=== PATIENT | female | born 1990 | race Caucasian/White ===

== ENCOUNTER 2024-12-15 00:28 | Inpatient (IN) | payer OTHER ==
[2024-12-15] MEDS: Lactated Ringers 1,000 ML IV SCH (10:30)
[2024-12-15] MEDS ORDERED: Morphine PF 10 MG/10 ML SDV ONE (11:12)
[2024-12-15] MEDS ORDERED: Bupivacaine 0.75%/D5W 2 ML Amp ONE (11:12)
[2024-12-15] MEDS ORDERED: Oxytocin/Normal Saline 30 UNIT/500 ML BAG ONE ×2 (11:13→11:16)
[2024-12-15] MEDS ORDERED: Ketorolac 30 MG/ML SDV ONE (11:13)
[2024-12-15] MEDS ORDERED: Carboprost Tromethamine 250 MCG/1 mL Vial IM PRN (11:24)
[2024-12-15] MEDS ORDERED: Oxytocin 10 Units/1 ML SDV IM PRN (11:24)
[2024-12-15] MEDS ORDERED: Lactated Ringers 1,000 ML IV SCH ×2 (11:30→13:30)
[2024-12-15] MEDS ORDERED: Oxytocin/Lactated Ringers 30 UNIT/500 ML BAG IV SCH (11:30)
[2024-12-15 11:42] LABS: BASOPHILS PERCENT AUTO 0.2 % (0.0-1.0); EOSINOPHILS PERCENT AUTO 0.3 % (1.0-3.0); LYMPHOCYTES PERCENT AUTO 25.0 % (20.5-50.1); MONOCYTES PERCENT AUTO 7.1 % (2-8); NEUTROPHILS PERCENT AUTO 67.4 % (42.2-75.2); PLATELET COUNT,PLT 246 10^3/uL (150-450); RED BLOOD CELL COUNT 4.17 10^6/uL (4.2-5.4); WHITE BLOOD CELL COUNT,WBC 12.7 10^3/uL (5.0-10.0)
[2024-12-15] MEDS ORDERED: ePHEDrine 50 MG/ML SDV IVPUSH PRN (13:26)
[2024-12-15] MEDS: Oxytocin/Normal Saline 30 UNIT/500 ML BAG IV SCH (13:26)
[2024-12-15] MEDS ORDERED: Ondansetron 4 MG/2 ML SDV IVPUSH PRN (13:26)
[2024-12-15] MEDS ORDERED: Acetaminophen/oxyCODONE 325-5 MG Tab PO PRN (13:26)
[2024-12-15] MEDS ORDERED: diphenhydrAMINE 50 MG/ML SDV IVPUSH PRN (13:26)
[2024-12-15] MEDS: Ketorolac 30 MG/ML SDV IVPUSH SCH (20:35)
[2024-12-15] MEDS: Ondansetron 4 MG/2 ML SDV IVPUSH ONE (20:37)
[2024-12-16] MEDS: Promethazine 25 MG/ML SDV IM ONE (01:35)
[2024-12-16] MEDS: Sodium Chloride 0.9% 10 ML Syringe FLUSH SCH (01:35)
[2024-12-16] MEDS: Sodium Chloride 0.9% 10 ML Syringe FLUSH PRN (02:11)
[2024-12-16] MEDS: Prenatal Multivitamin with Calcium/Folic Acid/Iron Tab PO SCH (08:14)
[2024-12-16 13:22] LABS: PLATELET COUNT,PLT 243.0 10^3/uL (150-450); RED BLOOD CELL COUNT 3.39 10^6/uL (4.2-5.4); WHITE BLOOD CELL COUNT,WBC 13.1 10^3/uL (5.0-10.0)
[2024-12-16] MEDS: Acetaminophen/oxyCODONE 325-5 MG Tab PO PRN (15:26)
== END 2024-12-17 11:30 | disposition home or self-care (01) | DRG 788 ==
LOC: DL.OB 10:05 → OBSVTOIN 12:41 → DL.OB 12:41
PROVIDERS: ADMIT Family Medicine; ATTEND Family Medicine
PROC: 10D00Z1 Extraction of Products of Conception, Low, Open Approach (ICD-10-PCS; principal; 2024-12-15)
DX: O34.211 Maternal care for low transverse scar from previous cesarean delivery (principal); Z37.0 Single live birth; Z3A.39 39 weeks gestation of pregnancy
CPT/HCPCS: 01961; 36415; 59025; 85025; 85027; 86850; 86900; 86901; A9270-GY; J1885; J2405; J2590; J7120